=== PATIENT | male | born 1945 | race Caucasian/White ===

== ENCOUNTER 2021-03-26 00:47 | Inpatient (IN) ==
[2021-03-26] MEDS ORDERED: Propofol 10 mg/ml 100 ML BTL 100 ML ONE (00:53)
[2021-03-26] MEDS ORDERED: Heparin 5000 UNITS/ML 1 mL VIAL IV SCH (01:00)
[2021-03-26] MEDS ORDERED: Heparin DRIP 25,000 UNITS BAG 25,000 UNITS/500 ML BAG IV SCH (01:00)
[2021-03-26 01:14] LABS: ABS Basophils 0.1 10^3/ul (0-0.2); ABS Lymphocytes 0.9 10^3/ul (1.0-4.8); ABS Monocytes 1.1 10^3/ul (0-0.8); ABS Neutrophils 9.4 10^3/ul (1.5-7.7); ABS Nucleated RBC 0.1 10^3/ul; Eosinophil % 0.1 %; Hematocrit 39 % (42-52); Hemoglobin 12.5 g/dL (14.0-18.0); Lymphocyte % 7.7 %; Mean Corpuscular HGB Conc 32 g/dL (31-36); Mean Corpuscular Hemoglobin 26 pg (27-31); Mean Corpuscular Volume 82 fL (80-94); Mean Platelet Volume 10.3 fL (7.4-10.4); Nucleated Red Blood Cells % 0.4; Platelet Count 129 10^3/uL (150-450); Red Blood Count 4.81 10^6 /uL (4.18-5.48); Red Cell Distribution Width 23 % (10-15); White Blood Count 11.5 10^3/uL (3.5-10.8)
[2021-03-26] MEDS ORDERED: Propofol 10 mg/ml 100 ML BTL 100 ML IV ONE (01:21)
[2021-03-26 01:31] LABS: Blood Urea Nitrogen 42 mg/dL (6-24); eGFR CKD-EPI 30.8 (>60)
[2021-03-26] MEDS: Heparin DRIP 25,000 UNITS BAG 25,000 UNITS/500 ML BAG IV SCH ×2 (01:34→17:43)
[2021-03-26] MEDS ORDERED: Iodixanol (CONTRAST) 320 MG/ML 100 ML SDV IV ONE (02:01)
[2021-03-26 03:23] LABS: Albumin 3.4 g/dL (3.2-5.2); Albumin/Globulin Ratio 1.3 (1-3); Alkaline Phosphatase 55 U/L (35-149); Anion Gap 9 mmol/L (2-11); CO2 Carbon Dioxide 23 mmol/L (22-32); Calcium 8.2 mg/dL (8.6-10.3); Chloride 108 mmol/L (101-111); Globulin 2.6 g/dL (2-4); Glucose 193 mg/dL (70-100); Potassium 4.6 mmol/L (3.5-5.0); Sodium 140 mmol/L (135-145)
[2021-03-26 03:41] LABS: ALT 3696 U/L (7-52); AST 4869 U/L (13-39)
[2021-03-26 04:48] LABS: Troponin I 0.16 ng/mL (<0.03)
[2021-03-26] MEDS ORDERED: Vancomycin 1,000 MG in NS 0.9% 250 ml 250 ML IVPB ONE (04:55)
[2021-03-26] MEDS ORDERED: NS 0.9% 1000 ml BAG 1,000 ML IV SCH (05:00)
[2021-03-26] MEDS ORDERED: Propofol 10 mg/ml 100 ML BTL 100 ML IV SCH (05:00)
[2021-03-26] MEDS ORDERED: Cefepime 1 GM in Dextrose 1 GM/50 ML BAG IV SCH ×2 (05:00→08:00)
[2021-03-26] MEDS ORDERED: Vancomycin per Pharmacy 1 EA NOTE FOLLOW UP SCH (05:00)
[2021-03-26 05:05] LABS: C Reactive Protein 59.69 mg/L (<8.01); Lipase 32 U/L (11.0-82.0)
[2021-03-26] MEDS ORDERED: LORazepam 2 mg VIAL 1 ml IV PUSH PRN (05:09)
[2021-03-26] MEDS ORDERED: Lorazepam PYXIS KEY PRN (05:09)
[2021-03-26 05:25] LABS: PCO2 Arterial 32 mmHg (35-45); PO2 Arterial 90 mmHg (80-100)
[2021-03-26] MEDS ORDERED: Vancomycin 1,000 MG BAG/ADDV ONE (05:54)
[2021-03-26] MEDS ORDERED: Metoprolol Tartrate 5 mg VIAL 5 ml VIAL (1 mg/ml) IV SCH (06:00)
[2021-03-26] MEDS: Chlorhexidine MOUTHWASH 0.12% 15 ML UDC TOPICAL SCH ×5 (07:23→20:01)
[2021-03-26] MEDS: Famotidine IV 10 MG/ML 2 ml VIAL (20 mg) IV SLOW PU SCH (07:24)
[2021-03-26 08:19] LABS: Activated Partial Thrombo Time 84.3 seconds (26.0-38.0)
[2021-03-26 08:21] LABS: Albumin 3.3 g/dL (3.2-5.2); Albumin/Globulin Ratio 1.2 (1-3); Alkaline Phosphatase 58 U/L (35-149); Anion Gap 8 mmol/L (2-11); Blood Urea Nitrogen 42 mg/dL (6-24); CO2 Carbon Dioxide 24 mmol/L (22-32); Calcium 8.5 mg/dL (8.6-10.3); Chloride 108 mmol/L (101-111); Globulin 2.8 g/dL (2-4); Glucose 117 mg/dL (70-100); Potassium 4.2 mmol/L (3.5-5.0); Sodium 140 mmol/L (135-145); Total Protein 6.1 g/dL (6.4-8.9); eGFR CKD-EPI 31.8 (>60)
[2021-03-26] MEDS: Propofol 10 mg/ml 100 ML BTL 100 ML IV SCH ×3 (08:42→23:26)
[2021-03-26 08:55] LABS: ALT 3807 U/L (7-52); AST 4730 U/L (13-39); Troponin I 0.13 ng/mL (<0.03)
[2021-03-26] MEDS ORDERED: Piperacillin/Tazobac ADVAN 3.375 GM in NS 0.9% 100 ml BAG 100 ML IV ONE (09:00)
[2021-03-26] MEDS ORDERED: Zosyn per Pharmacy NOTE FOLLOW UP SCH (09:00)
[2021-03-26 09:52] LABS: Creatine Kinase 779 U/L (10-223)
[2021-03-26] MEDS: Lactulose 30 ml UDC NG TUBE SCH ×2 (11:30→19:44)
[2021-03-26] MEDS ORDERED: Perflutren Lipid Microsphere 3 ML VIAL ONE (11:39)
[2021-03-26 12:51] LABS: INR 2.73 (0.86-1.15)
[2021-03-26] MEDS: ZOSYN 3.375 GM Q8H per EXTENDED INFUSION IV SCH ×2 (14:46→19:59)
[2021-03-26 15:06] LABS: Activated Partial Thrombo Time 93.5 seconds (26.0-38.0); INR 2.22 (0.86-1.15)
[2021-03-27] MEDS: Chlorhexidine MOUTHWASH 0.12% 15 ML UDC TOPICAL SCH ×6 (00:19→21:28)
[2021-03-27] MEDS: Propofol 10 mg/ml 100 ML BTL 100 ML IV SCH ×4 (03:16→23:53)
[2021-03-27 04:05] LABS: Hepatitis A Ab IgM Negative (Negative)
[2021-03-27 04:06] LABS: Hepatitis B Core IgM Nonreactive (Nonreactive)
[2021-03-27] MEDS: ZOSYN 3.375 GM Q8H per EXTENDED INFUSION IV SCH ×3 (04:17→21:28)
[2021-03-27 04:18] LABS: Hepatitis C Antibody Negative (Negative)
[2021-03-27 04:25] LABS: ABS Basophils 0.1 10^3/ul (0-0.2); ABS Eosinophils 0.3 10^3/ul (0-0.6); ABS Lymphocytes 0.3 10^3/ul (1.0-4.8); ABS Monocytes 0.5 10^3/ul (0-0.8); ABS Neutrophils 9.4 10^3/ul (1.5-7.7); Eosinophil % 2.6 %; Hematocrit 46 % (42-52); Hemoglobin 14.3 g/dL (14.0-18.0); Lymphocyte % 2.6 %; Mean Corpuscular HGB Conc 31 g/dL (31-36); Mean Corpuscular Hemoglobin 26 pg (27-31); Mean Corpuscular Volume 83 fL (80-94); Mean Platelet Volume 9.7 fL (7.4-10.4); Nucleated Red Blood Cells % 0.3; Platelet Count 120 10^3/uL (150-450); Red Blood Count 5.49 10^6 /uL (4.18-5.48); Red Cell Distribution Width 24 % (10-15); White Blood Count 10.6 10^3/uL (3.5-10.8)
[2021-03-27 04:40] LABS: Albumin 3.3 g/dL (3.2-5.2); Albumin/Globulin Ratio 1.1 (1-3); C Reactive Protein 111.47 mg/L (<8.01); Calcium 8.6 mg/dL (8.6-10.3); Globulin 2.9 g/dL (2-4); Total Bilirubin 1.8 mg/dL (0.2-1.0); Total Protein 6.2 g/dL (6.4-8.9); eGFR CKD-EPI 38.5 (>60)
[2021-03-27 04:51] LABS: INR 2.38 (0.86-1.15)
[2021-03-27 04:53] LABS: Phosphorus 3.1 mg/dL (2.5-5.0)
[2021-03-27 04:55] LABS: Vancomycin Random 6.7 mcg/mL
[2021-03-27] MEDS ORDERED: Vancomycin Random Level NOTE FOLLOW UP ONE (06:00)
[2021-03-27] MEDS: Morphine 2 MG/ML SYRINGE IV PRN ×2 (06:21→17:31)
[2021-03-27] MEDS: Metoprolol Tartrate 5 mg VIAL 5 ml VIAL (1 mg/ml) IV PRN ×2 (06:43→15:07)
[2021-03-27] MEDS: Lactulose 30 ml UDC NG TUBE SCH ×2 (07:42→21:28)
[2021-03-27] MEDS: Famotidine IV 10 MG/ML 2 ml VIAL (20 mg) IV SLOW PU SCH (07:42)
[2021-03-27] MEDS: methylPREDNISolone SOD 40 mg/ml 1 ml VIAL IV SCH ×2 (09:29→21:28)
[2021-03-27] MEDS: Albuterol/Ipratropium NEB.SOL (2.5/0.5 MG) 3 ML NEB.SOLN INH SCH ×4 (09:39→23:00)
[2021-03-27] MEDS ORDERED: Vancomycin 1,500 MG in NS 0.9% 250 ml 250 ML IVPB ONE (11:30)
[2021-03-27] MEDS ORDERED: Phytonadione Oral Solution 5 MG/25 ML UDC PO ONE (15:44)
[2021-03-27] MEDS ORDERED: fentaNYL 100 mcg/2 ml 50 MCG/ML VIAL ONE (17:45)
[2021-03-27] MEDS: fentaNYL 100 mcg/2 ml 50 MCG/ML VIAL IV SLOW PU PRN (17:48)
[2021-03-27] MEDS: Vancomycin 750 MG in NS 0.9% 250 ML IVPB SCH (23:53)
[2021-03-28] MEDS: Metoprolol Tartrate 5 mg VIAL 5 ml VIAL (1 mg/ml) IV PRN ×2 (01:18→08:42)
[2021-03-28] MEDS: Chlorhexidine MOUTHWASH 0.12% 15 ML UDC TOPICAL SCH ×6 (01:18→21:19)
[2021-03-28] MEDS: Albuterol/Ipratropium NEB.SOL (2.5/0.5 MG) 3 ML NEB.SOLN INH SCH ×6 (02:55→22:40)
[2021-03-28] MEDS: fentaNYL 100 mcg/2 ml 50 MCG/ML VIAL IV SLOW PU PRN ×2 (03:16→12:03)
[2021-03-28 04:25] LABS: ABS Lymphocytes 0.2 10^3/ul (1.0-4.8); ABS Monocytes 0.4 10^3/ul (0-0.8); ABS Neutrophils 11.2 10^3/ul (1.5-7.7); Hematocrit 43 % (42-52); Hemoglobin 13.2 g/dL (14.0-18.0); Lymphocyte % 1.4 %; Mean Corpuscular HGB Conc 31 g/dL (31-36); Mean Corpuscular Hemoglobin 26 pg (27-31); Mean Corpuscular Volume 82 fL (80-94); Mean Platelet Volume 9.6 fL (7.4-10.4); Nucleated Red Blood Cells % 0.3; Platelet Count 158 10^3/uL (150-450); Red Blood Count 5.17 10^6 /uL (4.18-5.48); Red Cell Distribution Width 24 % (10-15); White Blood Count 11.8 10^3/uL (3.5-10.8)
[2021-03-28 04:35] LABS: Activated Partial Thrombo Time 28.2 seconds (26.0-38.0); INR 1.73 (0.86-1.15)
[2021-03-28 04:42] LABS: Albumin 3.3 g/dL (3.2-5.2); Albumin/Globulin Ratio 1.1 (1-3); Calcium 8.3 mg/dL (8.6-10.3); Globulin 3.1 g/dL (2-4); Magnesium 2.3 mg/dL (1.9-2.7); Total Bilirubin 1.7 mg/dL (0.2-1.0); Total Protein 6.4 g/dL (6.4-8.9); eGFR CKD-EPI 37.5 (>60)
[2021-03-28 04:51] LABS: Phosphorus 3.5 mg/dL (2.5-5.0); Potassium 4.2 mmol/L (3.5-5.0)
[2021-03-28] MEDS: ZOSYN 3.375 GM Q8H per EXTENDED INFUSION IV SCH ×3 (05:37→21:32)
[2021-03-28] MEDS: Propofol 10 mg/ml 100 ML BTL 100 ML IV SCH ×4 (05:37→23:29)
[2021-03-28] MEDS: Famotidine IV 10 MG/ML 2 ml VIAL (20 mg) IV SLOW PU SCH (07:30)
[2021-03-28] MEDS: Lactulose 30 ml UDC NG TUBE SCH ×3 (07:30→23:29)
[2021-03-28] MEDS: methylPREDNISolone SOD 40 mg/ml 1 ml VIAL IV SCH ×2 (08:43→21:19)
[2021-03-28 09:00] LABS: C Reactive Protein 132.24 mg/L (<8.01)
[2021-03-28] MEDS ORDERED: Lactulose 30 ml UDC NG TUBE SCH (10:00)
[2021-03-28] MEDS ORDERED: NS 0.9% 250 ml 250 ML ONE (11:48)
[2021-03-28] MEDS: Vancomycin 750 MG in NS 0.9% 250 ML IVPB SCH ×2 (11:52→23:31)
[2021-03-28 14:28] LABS: Hepatitis B Surface Antigen Nonreactive (Nonreactive)
[2021-03-29] MEDS: Albuterol/Ipratropium NEB.SOL (2.5/0.5 MG) 3 ML NEB.SOLN INH SCH ×6 (02:50→23:14)
[2021-03-29] MEDS: Chlorhexidine MOUTHWASH 0.12% 15 ML UDC TOPICAL SCH ×6 (03:36→22:08)
[2021-03-29 04:52] LABS: ABS Basophils 0.1 10^3/ul (0-0.2); ABS Lymphocytes 0.2 10^3/ul (1.0-4.8); ABS Monocytes 0.8 10^3/ul (0-0.8); Eosinophil % 0.1 %; Hematocrit 41 % (42-52); Hemoglobin 12.7 g/dL (14.0-18.0); Lymphocyte % 1.4 %; Mean Corpuscular HGB Conc 31 g/dL (31-36); Mean Corpuscular Hemoglobin 26 pg (27-31); Mean Corpuscular Volume 83 fL (80-94); Mean Platelet Volume 9.6 fL (7.4-10.4); Nucleated Red Blood Cells % 0.2; Platelet Count 151 10^3/uL (150-450); Red Blood Count 4.97 10^6 /uL (4.18-5.48); Red Cell Distribution Width 24 % (10-15)
[2021-03-29 05:10] LABS: Albumin 3.2 g/dL (3.2-5.2); Albumin/Globulin Ratio 1.1 (1-3); Calcium 8.8 mg/dL (8.6-10.3); Globulin 2.9 g/dL (2-4); Magnesium 2.5 mg/dL (1.9-2.7); Phosphorus 3.2 mg/dL (2.5-5.0); Potassium 4.4 mmol/L (3.5-5.0); Total Bilirubin 1.3 mg/dL (0.2-1.0); Total Protein 6.1 g/dL (6.4-8.9); eGFR CKD-EPI 35.2 (>60)
[2021-03-29] MEDS: ZOSYN 3.375 GM Q8H per EXTENDED INFUSION IV SCH (05:40)
[2021-03-29] MEDS: Lactulose 30 ml UDC NG TUBE SCH ×2 (05:40→16:11)
[2021-03-29] MEDS: Famotidine IV 10 MG/ML 2 ml VIAL (20 mg) IV SLOW PU SCH (08:38)
[2021-03-29] MEDS: methylPREDNISolone SOD 40 mg/ml 1 ml VIAL IV SCH ×2 (08:39→22:13)
[2021-03-29] MEDS: Propofol 10 mg/ml 100 ML BTL 100 ML IV SCH ×2 (09:16→20:02)
[2021-03-29] MEDS: Metoprolol Tartrate 5 mg VIAL 5 ml VIAL (1 mg/ml) IV PRN ×2 (11:03→19:54)
[2021-03-29] MEDS ORDERED: Vancomycin Trough Check NOTE FOLLOW UP ONE (11:30)
[2021-03-29] MEDS: Vancomycin 750 MG in NS 0.9% 250 ML IVPB SCH (12:08)
[2021-03-29] MEDS: levETIRAcetam 1000MG IVPREMIX 1,000 MG/100 ML BAG IVPB SCH ×3 (12:28→12:44)
[2021-03-29] MEDS: cefTRIAXone 2 GM ADDV.VIAL 2 GM in NS 0.9% 100 ml BAG 100 ML IV SCH (12:46)
[2021-03-29] MEDS: ACYCLOVIR IVPB SCH (12:56)
[2021-03-29] MEDS: NS 0.9% IVPB SCH (12:56)
[2021-03-29] MEDS ORDERED: Acyclovir IV 500 MG/10 ML 100 ML VIAL (500 MG) IVPB SCH (13:00)
[2021-03-29] MEDS ORDERED: Ampicillin ADVAN 2 GM in NS 0.9% 100 ml BAG 100 ML IVPB SCH (13:00)
[2021-03-29] MEDS: Ampicillin ADVAN 2 GM in NS 0.9% 100 ML 100 ML IVPB SCH ×2 (13:25→19:33)
[2021-03-29] MEDS ORDERED: Dextrose 50% Syringe 50 ml 25 GM/50 ML SYRINGE IV PUSH PRN (14:45)
[2021-03-29 20:13] LABS: Glucose Confirmatory 420 mg/dL (70-100)
[2021-03-29] MEDS ORDERED: levETIRAcetam IV 1,500 MG in NS 0.9% 100 ml BAG 100 ML IVPB SCH (22:00)
[2021-03-30] MEDS: Lactulose 30 ml UDC NG TUBE SCH ×2 (00:03→07:50)
[2021-03-30 00:12] LABS: Glucose Confirmatory 405 mg/dL (70-100)
[2021-03-30] MEDS: Vancomycin 750 MG in NS 0.9% 250 ML IVPB SCH ×3 (00:32→23:51)
[2021-03-30] MEDS: cefTRIAXone 2 GM ADDV.VIAL 2 GM in NS 0.9% 100 ml BAG 100 ML IV SCH ×2 (00:36→11:51)
[2021-03-30] MEDS: ACYCLOVIR IVPB SCH ×2 (01:41→14:23)
[2021-03-30] MEDS: NS 0.9% IVPB SCH ×2 (01:41→14:23)
[2021-03-30] MEDS: Ampicillin ADVAN 2 GM in NS 0.9% 100 ML 100 ML IVPB SCH ×4 (01:44→20:27)
[2021-03-30] MEDS: Propofol 10 mg/ml 100 ML BTL 100 ML IV SCH ×5 (01:49→21:58)
[2021-03-30] MEDS: Chlorhexidine MOUTHWASH 0.12% 15 ML UDC TOPICAL SCH ×6 (01:49→21:59)
[2021-03-30] MEDS: Albuterol/Ipratropium NEB.SOL (2.5/0.5 MG) 3 ML NEB.SOLN INH SCH ×6 (02:47→22:50)
[2021-03-30 04:58] LABS: ABS Lymphocytes 0.2 10^3/ul (1.0-4.8); ABS Monocytes 0.9 10^3/ul (0-0.8); ABS Neutrophils 11.4 10^3/ul (1.5-7.7); Hematocrit 41 % (42-52); Hemoglobin 12.3 g/dL (14.0-18.0); Lymphocyte % 1.8 %; Mean Corpuscular HGB Conc 30 g/dL (31-36); Mean Corpuscular Hemoglobin 26 pg (27-31); Mean Corpuscular Volume 84 fL (80-94); Mean Platelet Volume 9.4 fL (7.4-10.4); Nucleated Red Blood Cells % 0.4; Platelet Count 136 10^3/uL (150-450); Red Blood Count 4.81 10^6 /uL (4.18-5.48); Red Cell Distribution Width 24 % (10-15); White Blood Count 12.5 10^3/uL (3.5-10.8)
[2021-03-30 05:16] LABS: Albumin/Globulin Ratio 1.1 (1-3); Calcium 8.8 mg/dL (8.6-10.3); Globulin 2.8 g/dL (2-4); Magnesium 2.6 mg/dL (1.9-2.7); Phosphorus 3.2 mg/dL (2.5-5.0); Potassium 3.6 mmol/L (3.5-5.0); Total Bilirubin 0.9 mg/dL (0.2-1.0); Total Protein 5.8 g/dL (6.4-8.9); eGFR CKD-EPI 40.4 (>60)
[2021-03-30] MEDS: Famotidine IV 10 MG/ML 2 ml VIAL (20 mg) IV SLOW PU SCH (07:51)
[2021-03-30] MEDS: levETIRAcetam IV 750 MG in NS 0.9% 100 ML IVPB SCH ×2 (10:23→21:59)
[2021-03-30] MEDS: methylPREDNISolone SOD 40 mg/ml 1 ml VIAL IV SCH ×2 (10:23→21:59)
[2021-03-30] MEDS: fentaNYL 100 mcg/2 ml 50 MCG/ML VIAL IV SLOW PU PRN (13:59)
[2021-03-30] MEDS ORDERED: Dextrose 50% Syringe 50 ml 25 GM/50 ML SYRINGE IV PUSH PRN (14:12)
[2021-03-30 14:27] LABS: Body Fluid Source Cerebral Spinal
[2021-03-30] MEDS ORDERED: Loperamide LIQ 2 MG/15 ML UDC PO PRN (14:27)
[2021-03-30 14:35] LABS: Body Fluid Appearance Cloudy; Body Fluid Color Colorless; CSF Tube # 4
[2021-03-30 14:41] LABS: CSF Glucose 222 mg/dL (40-70)
[2021-03-30 14:43] LABS: Body Fluid WBC 4 /mcL
[2021-03-30 14:57] LABS: Body Fluid Mono 57 %; Body Fluid Total Cells Counted 14
[2021-03-30] MEDS: Metoprolol Tartrate 5 mg VIAL 5 ml VIAL (1 mg/ml) IV PRN (21:15)
[2021-03-30] MEDS: Saline FLUSH-CENTRAL 10 ML SYRINGE CENT\\PICC SCH (22:25)
[2021-03-31] MEDS ORDERED: hydrALAZINE 20 mg/ml 1 ML Vial IV IV SLOW PU ONE (00:19)
[2021-03-31] MEDS: Chlorhexidine MOUTHWASH 0.12% 15 ML UDC TOPICAL SCH ×6 (01:31→22:51)
[2021-03-31] MEDS: cefTRIAXone 2 GM ADDV.VIAL 2 GM in NS 0.9% 100 ml BAG 100 ML IV SCH ×2 (01:31→13:15)
[2021-03-31] MEDS: Propofol 10 mg/ml 100 ML BTL 100 ML IV SCH ×4 (01:46→21:40)
[2021-03-31] MEDS: fentaNYL 100 mcg/2 ml 50 MCG/ML VIAL IV SLOW PU PRN (01:52)
[2021-03-31] MEDS: Albuterol/Ipratropium NEB.SOL (2.5/0.5 MG) 3 ML NEB.SOLN INH SCH ×6 (02:11→22:58)
[2021-03-31 04:52] LABS: ABS Lymphocytes 0.2 10^3/ul (1.0-4.8); ABS Monocytes 0.6 10^3/ul (0-0.8); ABS Neutrophils 9.5 10^3/ul (1.5-7.7); ABS Nucleated RBC 0.1 10^3/ul; Eosinophil % 0.1 %; Hematocrit 43 % (42-52); Hemoglobin 13.3 g/dL (14.0-18.0); Lymphocyte % 1.9 %; Mean Corpuscular HGB Conc 31 g/dL (31-36); Mean Corpuscular Hemoglobin 26 pg (27-31); Mean Corpuscular Volume 83 fL (80-94); Mean Platelet Volume 9.5 fL (7.4-10.4); Nucleated Red Blood Cells % 0.5; Platelet Count 132 10^3/uL (150-450); Red Blood Count 5.12 10^6 /uL (4.18-5.48); Red Cell Distribution Width 24 % (10-15); White Blood Count 10.4 10^3/uL (3.5-10.8)
[2021-03-31 05:07] LABS: Albumin 3.1 g/dL (3.2-5.2); Albumin/Globulin Ratio 1.1 (1-3); Calcium 8.9 mg/dL (8.6-10.3); Globulin 2.9 g/dL (2-4); Magnesium 2.6 mg/dL (1.9-2.7); Phosphorus 3.8 mg/dL (2.5-5.0); Potassium 4.2 mmol/L (3.5-5.0); Total Bilirubin 0.8 mg/dL (0.2-1.0); eGFR CKD-EPI 60.3 (>60)
[2021-03-31] MEDS: Famotidine IV 10 MG/ML 2 ml VIAL (20 mg) IV SLOW PU SCH (08:42)
[2021-03-31] MEDS: methylPREDNISolone SOD 40 mg/ml 1 ml VIAL IV SCH (08:42)
[2021-03-31] MEDS: Saline FLUSH-CENTRAL 10 ML SYRINGE CENT\\PICC SCH ×2 (08:43→22:51)
[2021-03-31] MEDS: levETIRAcetam IV 750 MG in NS 0.9% 100 ML IVPB SCH (09:50)
[2021-03-31] MEDS ORDERED: Lorazepam PYXIS KEY PRN (10:21)
[2021-03-31] MEDS ORDERED: LORazepam 2 mg VIAL 1 ml IV PUSH ONE (10:21)
[2021-03-31] MEDS ORDERED: LORazepam 2 mg VIAL 1 ml ONE (10:22)
[2021-03-31] MEDS ORDERED: Valproic Acid IV 1,500 MG in NS 0.9% 100 ml BAG 100 ML IVPB ONE (10:23)
[2021-03-31] MEDS ORDERED: Vancomycin Trough Check NOTE FOLLOW UP ONE (11:30)
[2021-03-31] MEDS ORDERED: methylPREDNISolone SOD SUCC 1000 MG ML VIAL IVPB ONE (12:02)
[2021-03-31] MEDS ORDERED: methylPREDNISolone SOD SUCC 1000 MG in NS 0.9% 100 ML IVPB ONE (12:30)
[2021-03-31] MEDS: LORazepam 2 mg VIAL 1 ml IV PUSH PRN (12:54)
[2021-03-31] MEDS ORDERED: Insulin GLARGINE 100 un/ml 10 ml VIAL SUBCUT SCH (13:00)
[2021-03-31] MEDS: Insulin GLARGINE 100 un/ml 10 ml VIAL SUBCUT SCH (13:15)
[2021-03-31] MEDS: Vancomycin 750 MG in NS 0.9% 250 ML IVPB SCH (14:03)
[2021-03-31 16:52] LABS: INR 1.42 (0.86-1.15)
[2021-03-31 17:02] LABS: Albumin 3.1 g/dL (3.2-5.2); Albumin/Globulin Ratio 1.1 (1-3); Calcium 8.9 mg/dL (8.6-10.3); Globulin 2.9 g/dL (2-4); Potassium 4.4 mmol/L (3.5-5.0); Total Bilirubin 0.8 mg/dL (0.2-1.0); eGFR CKD-EPI 57.5 (>60)
[2021-03-31] MEDS ORDERED: D5W 1000 ml BAG 1,000 ML IV ONE (18:29)
[2021-03-31 20:13] LABS: HSV 1 PCR, CSF Negative (Negative); HSV 2 PCR, CSF Negative (Negative)
[2021-03-31] MEDS: levETIRAcetam 1000MG IVPREMIX 1,000 MG/100 ML BAG IVPB SCH (20:44)
[2021-03-31] MEDS ORDERED: methylPREDNISolone SOD 40 mg/ml 1 ml VIAL IV SCH (21:00)
[2021-04-01] MEDS: Vancomycin 750 MG in NS 0.9% 250 ML IVPB SCH ×3 (00:59→23:25)
[2021-04-01] MEDS: cefTRIAXone 2 GM ADDV.VIAL 2 GM in NS 0.9% 100 ml BAG 100 ML IV SCH ×2 (01:16→13:22)
[2021-04-01] MEDS: Chlorhexidine MOUTHWASH 0.12% 15 ML UDC TOPICAL SCH ×6 (01:52→21:50)
[2021-04-01] MEDS: Albuterol/Ipratropium NEB.SOL (2.5/0.5 MG) 3 ML NEB.SOLN INH SCH ×6 (02:56→22:52)
[2021-04-01 05:28] LABS: Albumin/Globulin Ratio 1.1 (1-3); Calcium 8.8 mg/dL (8.6-10.3); Globulin 2.7 g/dL (2-4); Potassium 4.3 mmol/L (3.5-5.0); Total Bilirubin 0.7 mg/dL (0.2-1.0); Total Protein 5.7 g/dL (6.4-8.9); eGFR CKD-EPI 59.7 (>60)
[2021-04-01] MEDS: Propofol 10 mg/ml 100 ML BTL 100 ML IV SCH (06:25)
[2021-04-01] MEDS: Famotidine IV 10 MG/ML 2 ml VIAL (20 mg) IV SLOW PU SCH (08:39)
[2021-04-01] MEDS: Saline FLUSH-CENTRAL 10 ML SYRINGE CENT\\PICC SCH ×2 (08:40→21:44)
[2021-04-01] MEDS: levETIRAcetam 1000MG IVPREMIX 1,000 MG/100 ML BAG IVPB SCH ×2 (08:44→20:01)
[2021-04-01] MEDS: fentaNYL 100 mcg/2 ml 50 MCG/ML VIAL IV SLOW PU PRN (09:21)
[2021-04-01] MEDS: LORazepam 2 mg VIAL 1 ml IV PUSH PRN ×2 (09:29→14:03)
[2021-04-01] MEDS ORDERED: LORazepam 2 mg VIAL 1 ml IV PUSH ONE (10:11)
[2021-04-01] MEDS ORDERED: NS 0.9% 100 ml BAG 100 ML ONE (12:49)
[2021-04-01] MEDS ORDERED: methylPREDNISolone SOD SUCC 1,000 MG in NS 0.9% 1000 ml BAG 1,000 ML IVPB ONE (13:07)
[2021-04-01] MEDS: Insulin GLARGINE 100 un/ml 10 ml VIAL SUBCUT SCH (13:14)
[2021-04-01] MEDS: Valproic Acid IV 750 MG in NS 0.9% 100 ml BAG 100 ML IVPB SCH ×2 (13:55→21:40)
[2021-04-02] MEDS: Chlorhexidine MOUTHWASH 0.12% 15 ML UDC TOPICAL SCH ×6 (00:57→21:00)
[2021-04-02] MEDS: cefTRIAXone 2 GM ADDV.VIAL 2 GM in NS 0.9% 100 ml BAG 100 ML IV SCH ×3 (01:18→12:11)
[2021-04-02] MEDS: Albuterol/Ipratropium NEB.SOL (2.5/0.5 MG) 3 ML NEB.SOLN INH SCH ×3 (02:58→11:33)
[2021-04-02] MEDS: Propofol 10 mg/ml 100 ML BTL 100 ML IV SCH ×2 (03:10→17:28)
[2021-04-02] MEDS: Propofol 10 MG/ML 20 ML BTL ONE (03:11)
[2021-04-02] MEDS: LORazepam 2 mg VIAL 1 ml IV PUSH PRN ×2 (03:22→13:50)
[2021-04-02 05:02] LABS: Albumin 2.9 g/dL (3.2-5.2); Calcium 8.6 mg/dL (8.6-10.3); Globulin 2.8 g/dL (2-4); Potassium 4.7 mmol/L (3.5-5.0); Total Bilirubin 0.7 mg/dL (0.2-1.0); Total Protein 5.7 g/dL (6.4-8.9); eGFR CKD-EPI 57.5 (>60)
[2021-04-02] MEDS: Valproic Acid IV 750 MG in NS 0.9% 100 ml BAG 100 ML IVPB SCH (06:29)
[2021-04-02 08:22] LABS: Magnesium 2.4 mg/dL (1.9-2.7); Phosphorus 4.4 mg/dL (2.5-5.0)
[2021-04-02] MEDS: levETIRAcetam 1000MG IVPREMIX 1,000 MG/100 ML BAG IVPB SCH (08:26)
[2021-04-02] MEDS: Famotidine IV 10 MG/ML 2 ml VIAL (20 mg) IV SLOW PU SCH (08:27)
[2021-04-02] MEDS: Saline FLUSH-CENTRAL 10 ML SYRINGE CENT\\PICC SCH ×2 (09:26→21:01)
[2021-04-02] MEDS ORDERED: Furosemide 20 mg/2 ml IV VIAL IV ONE (11:25)
[2021-04-02] MEDS ORDERED: Lactulose 30 ml UDC NG TUBE SCH (12:00)
[2021-04-02] MEDS ORDERED: METHYLPREDNISOLONE SOD SUCC IVPB ONE (12:00)
[2021-04-02] MEDS ORDERED: NS 0.9% IVPB ONE (12:00)
[2021-04-02] MEDS: Insulin GLARGINE 100 un/ml 10 ml VIAL SUBCUT SCH (12:12)
[2021-04-02] MEDS: Vancomycin 750 MG in NS 0.9% 250 ML IVPB SCH (13:10)
[2021-04-02] MEDS ORDERED: NS 0.9% 100 ml BAG 100 ML ONE (13:20)
[2021-04-02] MEDS: Lactulose 30 ml UDC NG TUBE SCH ×2 (13:39→21:00)
[2021-04-02] MEDS ORDERED: Albuterol/Ipratropium NEB.SOL (2.5/0.5 MG) 3 ML NEB.SOLN INH PRN (14:35)
[2021-04-02] MEDS: levETIRAcetam IV 1,500 MG in NS 0.9% 100 ml BAG 100 ML IVPB SCH (15:57)
[2021-04-02] MEDS ORDERED: methylPREDNISolone SOD SUCC 1,000 MG in NS 0.9% 1000 ml BAG 1,000 ML IVPB ONE (23:59)
[2021-04-03] MEDS: Chlorhexidine MOUTHWASH 0.12% 15 ML UDC TOPICAL SCH ×6 (00:03→21:03)
[2021-04-03] MEDS ORDERED: methylPREDNISolone SOD SUCC 1,000 MG in NS 0.9% 100 ml BAG 100 ML IVPB ONE (00:06)
[2021-04-03] MEDS: LORazepam 2 mg VIAL 1 ml IV PUSH PRN ×2 (03:22→23:49)
[2021-04-03] MEDS ORDERED: Propofol 10 MG/ML 20 ML BTL ONE (03:25)
[2021-04-03] MEDS: Propofol 10 mg/ml 100 ML BTL 100 ML IV SCH (03:26)
[2021-04-03] MEDS: Propofol 10 MG/ML 20 ML BTL ONE (03:27)
[2021-04-03] MEDS: Metoprolol Tartrate 5 mg VIAL 5 ml VIAL (1 mg/ml) IV PRN ×2 (03:34→23:49)
[2021-04-03] MEDS: fentaNYL 100 mcg/2 ml 50 MCG/ML VIAL IV SLOW PU PRN ×2 (03:43→08:12)
[2021-04-03 04:48] LABS: Hematocrit 45 % (42-52); Hemoglobin 14.1 g/dL (14.0-18.0); Mean Corpuscular HGB Conc 31 g/dL (31-36); Mean Corpuscular Hemoglobin 26 pg (27-31); Mean Corpuscular Volume 83 fL (80-94); Mean Platelet Volume 9.8 fL (7.4-10.4); Platelet Count 137 10^3/uL (150-450); Red Blood Count 5.49 10^6 /uL (4.18-5.48); Red Cell Distribution Width 23 % (10-15)
[2021-04-03] MEDS: levETIRAcetam IV 1,500 MG in NS 0.9% 100 ml BAG 100 ML IVPB SCH ×2 (04:52→17:05)
[2021-04-03 05:10] LABS: Calcium 8.5 mg/dL (8.6-10.3); Magnesium 2.4 mg/dL (1.9-2.7); Phosphorus 4.5 mg/dL (2.5-5.0); Potassium 4.4 mmol/L (3.5-5.0); eGFR CKD-EPI 62.7 (>60)
[2021-04-03 05:12] LABS: ABS Lymphocytes 0.1 10^3/ul (1.0-4.8); ABS Monocytes 0.5 10^3/ul (0-0.8); ABS Neutrophils 11.2 10^3/ul (1.5-7.7); ABS Nucleated RBC 0.1 10^3/ul; Lymphocyte % 1.2 %; Nucleated Red Blood Cells % 0.6
[2021-04-03] MEDS: Lactulose 30 ml UDC NG TUBE SCH ×3 (08:14→21:03)
[2021-04-03] MEDS: Famotidine IV 10 MG/ML 2 ml VIAL (20 mg) IV SLOW PU SCH (08:14)
[2021-04-03] MEDS: Dexmedetomidine 1,000 MCG in NS 0.9% 250 ml 240 ML IV SCH (08:53)
[2021-04-03] MEDS ORDERED: methylPREDNISolone SOD SUCC 1,000 MG in NS 0.9% 1000 ml BAG 1,000 ML IVPB ONE (09:03)
[2021-04-03] MEDS: Saline FLUSH-CENTRAL 10 ML SYRINGE CENT\\PICC SCH ×2 (10:44→21:03)
[2021-04-03] MEDS ORDERED: Vancomycin Trough Check NOTE FOLLOW UP ONE (11:30)
[2021-04-03] MEDS ORDERED: methylPREDNISolone SOD SUCC 1000 MG in NS 0.9% 100 ML IVPB ONE (12:00)
[2021-04-03 12:14] LABS: PCO2 Arterial 39 mmHg (35-45); PO2 Arterial 110 mmHg (80-100)
[2021-04-03] MEDS ORDERED: Dextran 70/Hypromellose Tears Eye Drops 15 ml BTL (for Artificials Tears) BOTH EYES PRN (12:38)
[2021-04-03] MEDS: Insulin GLARGINE 100 un/ml 10 ml VIAL SUBCUT SCH (13:40)
[2021-04-04] MEDS: Chlorhexidine MOUTHWASH 0.12% 15 ML UDC TOPICAL SCH ×6 (01:24→20:20)
[2021-04-04 04:26] LABS: Hematocrit 47 % (42-52); Hemoglobin 14.9 g/dL (14.0-18.0); Mean Corpuscular HGB Conc 32 g/dL (31-36); Mean Corpuscular Hemoglobin 26 pg (27-31); Mean Corpuscular Volume 82 fL (80-94); Platelet Count 130 10^3/uL (150-450); Red Blood Count 5.72 10^6 /uL (4.18-5.48); Red Cell Distribution Width 23 % (10-15); White Blood Count 10.6 10^3/uL (3.5-10.8)
[2021-04-04 04:32] LABS: INR 1.46 (0.86-1.15)
[2021-04-04] MEDS: levETIRAcetam IV 1,500 MG in NS 0.9% 100 ml BAG 100 ML IVPB SCH ×2 (04:44→16:14)
[2021-04-04 04:45] LABS: Magnesium 2.5 mg/dL (1.9-2.7); Phosphorus 3.9 mg/dL (2.5-5.0)
[2021-04-04 04:46] LABS: Ammonia 80 mcmol/L (16-53)
[2021-04-04 04:52] LABS: BNP 480 pg/mL (<=100)
[2021-04-04 04:56] LABS: ABS Lymphocytes 0.1 10^3/ul (1.0-4.8); ABS Monocytes 0.4 10^3/ul (0-0.8); Lymphocyte % 1.3 %; Nucleated Red Blood Cells % 0.3
[2021-04-04] MEDS: Metoprolol Tartrate 5 mg VIAL 5 ml VIAL (1 mg/ml) IV PRN (05:11)
[2021-04-04 05:18] LABS: Vitamin B12 > 1450 pg/mL (180-914)
[2021-04-04 06:01] LABS: Blood Urea Nitrogen 60 mg/dL (6-24); CO2 Carbon Dioxide 29 mmol/L (22-32); Calcium 8.6 mg/dL (8.6-10.3); Glucose 232 mg/dL (70-100); Potassium 4.2 mmol/L (3.5-5.0); eGFR CKD-EPI 63.3 (>60)
[2021-04-04 06:03] LABS: Anion Gap 8 mmol/L (2-11); Chloride 113 mmol/L (101-111); Sodium 150 mmol/L (135-145)
[2021-04-04] MEDS: LORazepam 2 mg VIAL 1 ml IV PUSH PRN (07:39)
[2021-04-04] MEDS: Lactulose 30 ml UDC NG TUBE SCH ×3 (08:14→20:20)
[2021-04-04] MEDS: fentaNYL 100 mcg/2 ml 50 MCG/ML VIAL IV SLOW PU PRN ×3 (08:14→22:29)
[2021-04-04] MEDS: Famotidine IV 10 MG/ML 2 ml VIAL (20 mg) IV SLOW PU SCH (08:15)
[2021-04-04] MEDS ORDERED: methylPREDNISolone SOD SUCC 1,000 MG in NS 0.9% 100 ml BAG 100 ML IVPB ONE (09:00)
[2021-04-04] MEDS: Saline FLUSH-CENTRAL 10 ML SYRINGE CENT\\PICC SCH ×2 (09:48→20:21)
[2021-04-04] MEDS: Dexmedetomidine 1,000 MCG in NS 0.9% 250 ml 240 ML IV SCH ×2 (10:17→18:29)
[2021-04-04] MEDS: Insulin GLARGINE 100 un/ml 10 ml VIAL SUBCUT SCH (13:52)
[2021-04-04] MEDS: Acetaminophen IV 1 GM/100ML VI 100 ML IV PRN (18:13)
[2021-04-04] MEDS ORDERED: niCARdipine 0.1MG/ML IVPREMIX 20 MG/200 ML BAG IV SCH (22:00)
[2021-04-04 22:58] LABS: PCO2 Arterial 35 mmHg (35-45); PO2 Arterial 137 mmHg (80-100)
[2021-04-05] MEDS: CMC:Venlafaxine 25 mg TAB (NF) PO SCH ×2 (00:31→08:28)
[2021-04-05] MEDS: Chlorhexidine MOUTHWASH 0.12% 15 ML UDC TOPICAL SCH ×7 (02:42→22:10)
[2021-04-05] MEDS: levETIRAcetam IV 1,500 MG in NS 0.9% 100 ml BAG 100 ML IVPB SCH ×2 (02:43→16:43)
[2021-04-05] MEDS: Dexmedetomidine 1,000 MCG in NS 0.9% 250 ml 240 ML IV SCH (03:15)
[2021-04-05] MEDS: Acetaminophen IV 1 GM/100ML VI 100 ML IV PRN ×3 (04:42→22:34)
[2021-04-05 05:10] LABS: Blood Urea Nitrogen 61 mg/dL (6-24); CO2 Carbon Dioxide 28 mmol/L (22-32); Calcium 8.5 mg/dL (8.6-10.3); Glucose 254 mg/dL (70-100); eGFR CKD-EPI 46.1 (>60)
[2021-04-05 05:11] LABS: Chloride 114 mmol/L (101-111); Sodium 150 mmol/L (135-145)
[2021-04-05 05:39] LABS: Anion Gap 8 mmol/L (2-11)
[2021-04-05] MEDS: Lactulose 30 ml UDC NG TUBE SCH ×3 (08:27→20:17)
[2021-04-05] MEDS: Famotidine IV 10 MG/ML 2 ml VIAL (20 mg) IV SLOW PU SCH (08:28)
[2021-04-05] MEDS ORDERED: D5NS 0.9% 1000 ml BAG 1,000 ML IV SCH (09:00)
[2021-04-05] MEDS: Saline FLUSH-CENTRAL 10 ML SYRINGE CENT\\PICC SCH ×2 (10:54→22:10)
[2021-04-05] MEDS: Insulin GLARGINE 100 un/ml 10 ml VIAL SUBCUT SCH (12:37)
[2021-04-05] MEDS: Metoprolol Tartrate 5 mg VIAL 5 ml VIAL (1 mg/ml) IV PRN (13:53)
[2021-04-05] MEDS: D5W 1000 ml BAG 1,000 ML IV SCH (16:43)
[2021-04-05] MEDS: Diltiazem IV BAG D5W Premix 125 MG/125 ML BAG IV SCH ×2 (16:43→23:42)
[2021-04-05] MEDS ORDERED: methylPREDNISolone 125 mg 1,000 MG in NS 0.9% 100 ml BAG 100 ML IV ONE (23:55)
[2021-04-06] MEDS: Chlorhexidine MOUTHWASH 0.12% 15 ML UDC TOPICAL SCH ×4 (00:33→13:55)
[2021-04-06] MEDS ORDERED: methylPREDNISolone SOD SUCC 1,000 MG in NS 0.9% 250 ml 250 ML IVPB ONE (01:02)
[2021-04-06] MEDS ORDERED: methylPREDNISolone SOD SUCC 1000 MG in NS 0.9% 100 ML IVPB ONE (01:04)
[2021-04-06] MEDS: D5W 1000 ml BAG 1,000 ML IV SCH (01:14)
[2021-04-06] MEDS: levETIRAcetam IV 1,500 MG in NS 0.9% 100 ml BAG 100 ML IVPB SCH (04:22)
[2021-04-06 04:41] LABS: ABS Eosinophils 0.1 10^3/ul (0-0.6); ABS Lymphocytes 0.2 10^3/ul (1.0-4.8); ABS Monocytes 1.4 10^3/ul (0-0.8); ABS Neutrophils 24.8 10^3/ul (1.5-7.7); ABS Nucleated RBC 0.1 10^3/ul; Eosinophil % 0.5 %; Hematocrit 55 % (42-52); Hemoglobin 16.9 g/dL (14.0-18.0); Lymphocyte % 0.9 %; Mean Corpuscular HGB Conc 31 g/dL (31-36); Mean Corpuscular Hemoglobin 25 pg (27-31); Mean Corpuscular Volume 83 fL (80-94); Nucleated Red Blood Cells % 0.3; Red Blood Count 6.66 10^6 /uL (4.18-5.48); Red Cell Distribution Width 25 % (10-15); White Blood Count 26.6 10^3/uL (3.5-10.8)
[2021-04-06 04:45] LABS: Blood Urea Nitrogen 57 mg/dL (6-24); CO2 Carbon Dioxide 27 mmol/L (22-32); Calcium 8.2 mg/dL (8.6-10.3); Chloride 111 mmol/L (101-111); Glucose 345 mg/dL (70-100); eGFR CKD-EPI 41.3 (>60)
[2021-04-06 05:13] LABS: Large Platelets Present; Mean Platelet Volume 10.8 fL (7.4-10.4); Platelet Count 123 10^3/uL (150-450)
[2021-04-06 05:41] LABS: Magnesium 2.3 mg/dL (1.9-2.7); Potassium 4.3 mmol/L (3.5-5.0)
[2021-04-06 05:43] LABS: Anion Gap 8 mmol/L (2-11); Sodium 146 mmol/L (135-145)
[2021-04-06 06:09] LABS: Rheumatoid Factor < 10 IU/mL (<15)
[2021-04-06 08:33] LABS: Glucose Confirmatory 478 mg/dL (70-100)
[2021-04-06] MEDS: Diltiazem IV BAG D5W Premix 125 MG/125 ML BAG IV SCH (09:46)
[2021-04-06] MEDS: Lactulose 30 ml UDC NG TUBE SCH (09:46)
[2021-04-06] MEDS: CMC:Venlafaxine 25 mg TAB (NF) PO SCH (09:47)
[2021-04-06] MEDS: Saline FLUSH-CENTRAL 10 ML SYRINGE CENT\\PICC SCH (09:47)
[2021-04-06] MEDS: Famotidine IV 10 MG/ML 2 ml VIAL (20 mg) IV SLOW PU SCH (09:53)
[2021-04-06] MEDS ORDERED: Dexmedetomidine 1,000 MCG in NS 0.9% 250 ml 240 ML IV SCH (10:00)
[2021-04-06 10:04] LABS: AGNA-1, CSF Negative titer (<1:2); Amphiphysin Ab, CSF Negative titer (<1:2); CRMP-5-IgG, CSF Negative titer (<1:2); PCA-1, CSF Negative titer (<1:2); PCA-2, CSF Negative titer (<1:2); PCA-Tr, CSF Negative titer (<1:2)
[2021-04-06] MEDS: Norepinephrine 16MCG/ML BAG NS 4,000 MCG/250 ML BAG IV ONE ×2 (10:45→11:19)
[2021-04-06 11:06] LABS: Glucose Confirmatory 475 mg/dL (70-100)
[2021-04-06] MEDS ORDERED: Ondansetron 4 mg VIAL 2 MG/ML 2 ml VIAL IV PRN (11:07)
[2021-04-06] MEDS: Morphine 2 MG/ML SYRINGE IV PRN ×2 (11:08→12:31)
[2021-04-06] MEDS ORDERED: Morphine 2 MG/ML SYRINGE ONE (11:08)
[2021-04-06] MEDS ORDERED: Ondansetron 4 mg VIAL 2 MG/ML 2 ml VIAL ONE (11:08)
[2021-04-06] MEDS: Acetaminophen IV 1 GM/100ML VI 100 ML IV PRN (11:27)
[2021-04-06] MEDS ORDERED: Norepinephrine 16MCG/ML BAG NS 4,000 MCG/250 ML BAG IV SCH ×2 (12:00)
[2021-04-06] MEDS ORDERED: Morphine 10 MG/ML VIAL (1 ml) IV ONE (12:37)
[2021-04-06] MEDS ORDERED: LORazepam 2 mg VIAL 1 ml IV PUSH ONE (12:38)
[2021-04-06] MEDS ORDERED: Lorazepam PYXIS KEY PRN (12:38)
[2021-04-06] MEDS ORDERED: Morphine PCA ADULT 5 MG/ML 30 ML PCA SCH (12:45)
[2021-04-06 15:49] VITALS: BP 96/78
[2021-04-08 13:49] LABS: Myeloperoxidase Antibody <0.2 U; Proteinase 3 <0.2 U
[2021-04-09 18:06] LABS: Anti-Glial/Neuronal Nuc Ab-1 A Negative titer (<1:240); Anti-Neuronal Nuclear Ab Type1 Negative titer (<1:240); Anti-Neuronal Nuclear Ab Type2 Negative titer (<1:240); Anti-Neuronal Nuclear Ab Type3 Negative titer (<1:240); CRMP-5 IgG Antibody Negative titer (<1:240); Purkinje Cell Cytoplasm Typ Tr Negative titer (<1:240); Purkinje Cell Cytoplasm Type 1 Negative titer (<1:240); Purkinje Cell Cytoplasm Type 2 Negative titer (<1:240)
[2021-04-10 10:55] LABS: SS-B/La Antibody <0.2 U
== END 2021-04-06 14:57 | disposition expired | DRG 870 ==
LOC: ED 00:47 → EDHOLD 05:02 → SUATTDRO 05:02 → ICU 05:26
PROVIDERS: ADMIT Internal Medicine; ATTEND Internal Medicine